=== PATIENT | female | born 1935 | race Caucasian/White ===

== ENCOUNTER 2019-12-06 21:28 | Inpatient (IN) | payer MEDICARE, SELFPAY ==
--- NOTE | ~2019-12-06 | XR_ITS ---
XR chest 1V portable 12/06/2019 22:40 Indication: Shortness of breath and cough. Left-sided chest pain. Procedure: AP portable chest Comparison: Comparison to multiple prior studies sequentially, with oldest reviewed study dated 04/12. Findings: Status post median sternotomy for CABG. Cardiomegaly. Left basilar infiltrates. Small left pleural effusion. No pneumothorax. Impression: 1: Left basilar infiltrates may represent atelectasis and/or pneumonia. 2: Small left pleural effusion. Reviewed, dictated and finalized at location [facility]. Impression: 1: Left basilar infiltrates may represent atelectasis and/or pneumonia. 2: Small left pleural effusion.
--- NOTE | ~2019-12-06 | CT_ITS ---
EXAMINATION: CT chest wo con DATE: 12/07/2019 00:16 INDICATION: Shortness of breath, cough, chest pain TECHNIQUE: Computed tomography (CT) of the chest was performed without intravenous contrast. Automate d exposure control and iterative reconstruction technique were employed. Exam dose: 170.90 mGy-cm to steven exam DLP. COMPARISON: 12/06/2019 portable AP chest at 2236 hours FINDINGS: There is an abnormal mass at the left mediastinum lateral to the aortic arch measuring 3.2 x 3 x 2.5 cm with central hypodensity suggesting necrosis. Additional prominent paratracheal and prec arinal lymph nodes are noted, the largest precarinal lymph node measuring 12 mm. Metastatic mediastin al lymphadenopathy is suspected. There is new irregular approximately 11 x 15 mm soft tissue mass density in the anterior basilar righ t lower lobe abutting the greater fissure, suspicious for carcinoma of the lung. There is an approximately 8 mm peripheral nodular density in the anterior segment of the left upper l obe with adjacent discoid atelectasis or more likely scarring. This may represent of focal area of ro unded atelectasis; neoplasm or metastasis is not excluded. There is elevation left leaf of the diaphragm and atelectasis at the left lung base. There is discoid atelectasis or scarring in the left lower lobe. Calcified pulmonary granuloma, superior segment of right lower lobe. Mild emphysematous changes. Cardiomegaly. There is extensive coronary artery calcification. No pericardial or pleural effusion. There is aortic and great vessel calcification. Normal morphology of the adrenal glands. Diverticulosis of the splenic flexure of the colon. Status post sternotomy. No suspicious osteolytic or osteoblastic lesions are noted. IMPRESSION: Prevascular mediastinal mass, mediastinal lymphadenopathy 11 x 15 mm soft tissue mass in the anterior basilar right lower lobe, suspicious for carcinoma: 8 mm nonspecific nodular density in the anterior segment left upper lobe, differential diagnosis incl uding a rounded atelectasis versus less likely primary or metastatic neoplasm Consider PET/CT imaging for further evaluation. Mild emphysema Mild elevation of the left leaf of the diaphragm and left basilar atelectasis Cardiomegaly; aortic and coronary atherosclerosis Reviewed, dictated and finalized at [facility]. Reviewed, dictated and finalized at location A. IMPRESSION: Prevascular mediastinal mass, mediastinal lymphadenopathy 11 x 15 mm soft tissue mass in the anterior basilar right lower lobe, suspiciou s for carcinoma: 8 mm nonspecific nodular density in the anterior segment left upper lobe, diffe rential diagnosis including a rounded atelectasis versus less likely primary or metastatic neoplasm Consider PET/CT imaging for further evaluation. Mild emphysema Mild elevation of the left leaf of the diaphragm and left basilar atelectasis Cardiomegaly; aortic and coronary atherosclerosis
--- NOTE | ~2019-12-06 | CT_ITS ---
EXAMINATION: CT brain wo con DATE: 12/07/2019 01:37 INDICATION: Confusion TECHNIQUE: Computed tomography (CT) of the head was performed without intravenous contrast. The mA wa s adjusted according to patient size. Iterative reconstruction technique was employed. Exam dose: 52 9.67 mGy-cm total exam DLP. COMPARISON: 05/09/2016 CT brain FINDINGS: No intracranial mass lesion or hemorrhage, midline shift or mass effect. No recent cerebrov ascular accident is evident. No midline shift or mass effects. There is moderate cerebellar and cerebral atrophy. Intracranial cerebral atherosclerosis. There are c hronic small vessel ischemic changes of the cerebral white matter. There is patchy opacification of ethmoid air cells bilaterally. The mastoid air cells are normally de veloped and aerated. No fracture or bone destruction of the cranial vault. IMPRESSION: Cerebral atherosclerosis and chronic small vessel ischemic changes of cerebral white mat ter Moderate cerebellar and cerebral atrophy Reviewed, dictated and finalized at [facility]. Reviewed, dictated and finalized at location A. IMPRESSION: Cerebral atherosclerosis and chronic small vessel ischemic changes of cerebral white matter Moderate cerebellar and cerebral atrophy
[2019-12-06 21:31] VITALS: BP 128/63; PULSE 118; RESP 26; TEMP 36.3; O2SAT 97
[2019-12-06 21:44] VITALS: BP 148/67; PULSE 115; RESP 26; O2SAT 97
[2019-12-06 21:45] VITALS: O2SAT 97
--- NOTE | 2019-12-06 21:46 | ECG_ITS ---
Measurements Intervals [place] Rate: 115 P: 40 NM: 194 QRS: -41 QRSD: 105 T: 81 QT: 341 QTc: 472 Interpretive Statements SINUS OR ECTOPIC ATRIAL TACHYCARDIA LEFT AXIS DEVIATION DELAYED PRECORDIAL R/S TRANSITION NONSPECIFIC ST & T-WAVE ABNORMALITY- HIGH LATERAL LEADS ABNORMAL ECG Electronically Signed On 12-07-2019 7:02:05 CDT by Robert David D.O.
--- NOTE | 2019-12-06 21:53 | ED.SOB ---
HPI - SOB/Dyspnea General Chief Complaint: Shortness of Breath/Dyspnea Stated Complaint: sob Time Seen by Provider: 12/06/19 21:43 Source: patient and family Mode of arrival: ambulatory Limitations: no limitations History of Present Illness HPI Narrative: This patient is a 84 year old female with history heart disease, former smoker who presents for evaluation of low oxygen saturation and shortness of breath. Patient's family reports patient was complaining of shortness of breath. They have checking her oxygen at home and tonight it went down to 91% on room so they came to ER. Patient reports chronic cough since 2016 and she reports shortness of breath since 2016. Tonight her breathing worsened and she had mild chest pain and weakness. Her daughter also reports patient has wheezing all the time. She denies use of inhaler or diagnosis of COPD or emphysema. PAtient states this is not COVID. She denies sore throat, runny nose, loss of taste or smell, abdominal pain, nausea, vomiting or fever. Related Data Home Medications Medication Instructions Recorded Confirmed metolazone 2.5 mg tablet 2.5 mg PO DAILY PRN 09/20/19 12/07/19 lisinopril 7.5 mg PO DAILY 12/06/19 12/07/19 atorvastatin 40 mg PO DAILY 12/07/19 12/07/19 clopidogrel 75 mg PO DAILY 12/07/19 12/07/19 furosemide 40 mg PO DAILY 12/07/19 12/07/19 Allergies Allergy/AdvReac Type Severity Reaction Status Date / Time No Known Allergies Allergy Verified 12/06/19 21:46 Review of Systems Review of Systems: All systems reviewed & are unremarkable except as noted in HPI and below Constitutional: Constitutional: Denies chills, Denies fever(s) and Reports weakness Cardiovascular: Cardiovascular: Reports chest pain Respiratory: Respiratory: Reports cough and Reports dyspnea Gastrointestinal: Gastrointestinal: Denies abdominal pain, Denies nausea and Denies vomiting [facility] Past Medical History Medical History (Updated 12/07/19 @ 11:08 by Bladimir Callaway MD) Anemia Anxiety Arthritis Callus of foot Cataracts, bilateral CHF (congestive heart failure) DVT (deep venous thrombosis) GI bleed Heart attack History of blood transfusion History of radiation therapy HTN (hypertension) Hyperlipidemia IBS (irritable bowel syndrome) Pneumonia Post-menopausal PVD (peripheral vascular disease) TIA (transient ischemic attack) Surgical History Surgical History (Updated 11/15/19 @ 13:40 by Asad Plunkett MD) History of appendectomy History of hip replacement Right - 2010 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 Smoking packs per day: 0.5 Smoking cigarettes per day: 10.0 Years smoked: 50 Smoking pack-years: 25.00 Smoking status: Former smoker Tobacco type: cigarettes Second hand tobacco smoke exposure: Yes Alcohol intake: former Substance use: never Gender identity (if verbalized by the patient): Female Sexual Orientation (if Verbalized by the Patient): Straight or Heterosexual Spiritual care concerns: No Exam Const: General: alert Orientation/consciousness: patient oriented x3 Eyes: Pupils: Equal, round and reactive pupils present EOM: EOMs intact bilaterally Chest: Chest palpation & inspection: normal inspection of the chest Resp: Effort & Inspection: normal respiratory effort, no retractions and no use of accessory muscles Auscultation: rhonchi right upper and right lower and wheezes Cardio: Rate: tachycardic Rhythm: regular rhythm Heart sounds: no murmurs GI: GI Palp: Yes Soft to palpation, No Tenderness to palpation present (GI), No Guarding due to palpation present (GI) and No Rigid due to palpation Back/Spine/Pelvis: Back: no CVA tenderness Skin: General skin exam: normal color Rashes: no rashes Neuro: General: patient oriented x3 and moves all extremities Cours
[2019-12-06 22:19] LABS: Alveolar/Arterial O2 Gradient 31.9 mmHg; Base Excess ABG -6.4 mEq/l (+/-2.0); Carboxyhemoglobin 0.3 % THb (0-2.0); Fractional Inspired Oxygen 21 %; HCO3 ABG 17.3 mEq/l (22.0-26.0); Methemoglobin ABG 0.2 %THb (0-1.5); Oxygen Content ABG 16.4 %vol (16.0-22.0); Oxygen Saturation ABG 96.2 % (95.0-100.0); Oxyhemoglobin 95.3 % THb (90.0-100.0); PCO2 ABG 29.3 mmHg (35.0-45.0); PO2 ABG 82.7 mmHg (80.0-100.0); PO2 FiO2 Ratio Arterial Blood 3.94 %; Reduced Hemoglobin 4.2 %THb (0-5.0); Total Hemoglobin 12.2 g/dL (12.0-18.0)
[2019-12-06 22:20] LABS: Device ROOM AIR; Modified Allen's Test Pass; Site Drawn RIGHT RADIAL
[2019-12-06 22:24] LABS: Basophils Absolute Auto 0.1 K/mm3 (0.0-0.1); Basophils Percent Auto 0.4 % (0.2-1.2); Eosinophils Absolute Auto 0.2 K/mm3 (0-0.3); Eosinophils Percent Auto 1.8 % (0-4.4); Hematocrit 40.4 % (37.0-47.0); Hemoglobin 12.9 g/dL (12.0-15.0); Immature Granulocyte Absolute 0.04 K/mm3 (0.00-0.031); Immature Granulocyte Percent A 0.3 % (0-0.5); Lymphocytes Absolute Auto 1.63 K/mm3 (0.9-3.2); Lymphocytes Percent Auto 14.1 % (18.3-44.2); Mean Corpuscular HGB Conc 31.9 g/dl (32-36); Mean Corpuscular Hemoglobin 28.8 pg (26-34); Mean Corpuscular Volume 90.2 fl (80-100); Mean Platelet Volume 10.7 fl (7.4-10.4); Monocytes Absolute Auto 0.8 K/mm3 (0.1-0.6); Monocytes Percent Auto 6.6 % (2.6-8.5); Neutrophils Absolute Auto 8.9 K/mm3 (1.3-6.7); Neutrophils Percent Auto 76.8 % (45.5-73.1); Platelet Count Result 402 k/mm3 (150-375); Red Blood Count 4.48 M/mm3 (4.2-5.4); Red Cell Distribution Width 13.4 % (11.5-14.5); White Blood Count 11.6 K/mm3 (4.5-10.0)
[2019-12-06 22:34] LABS: INR 1.2; Prothrombin Time 14.4 Seconds (11.1-14.7)
[2019-12-06 22:35] LABS: Partial Thromboplastin Time 31.7 SECONDS (22.3-36.8)
[2019-12-06 22:36] LABS: Alanine Aminotransferase 24 U/L (4-35); Albumin Level 4.4 g/dL (3.5-5.1); Alkaline Phosphatase 126 U/L (38-126); Anion Gap 16.9 mmol/L (7-16); Aspartate Amino Transferase 24 U/L (14-36); Bilirubin,Total 0.5 mg/dL (0.2-1.3); Blood Urea Nitrogen 36 mg/dL (7-17); Calcium 9.3 mg/dL (8.4-10.2); Carbon Dioxide 18 mmol/L (22-30); Chloride 108 mmol/L (98-107); Estimated CRCL calculation 22 ml/min; Estimated Glomerular Filt Rate 31; Glucose 107 mg/dL (65-105); Lactic Acid Reflex 0.6 mmol/L (0.7-2.1); Potassium 5.9 mmol/L (3.4-5.0); Sodium 137 mmol/L (137-145)
[2019-12-06 22:47] LABS: NT Pro B Type Natriuretic Pept 2520 PG/ML (5-100); Troponin I < 0.012 ng/mL (0.000-0.034)
[2019-12-07] VITALS (16 sets, daily range): BP systolic 105–137; BP diastolic 52–78; PULSE 80–121; RESP 13–24; TEMP 35.5–36.8; O2SAT 91–100; BMI 30.8
[2019-12-07 00:17] LABS: Add Urine Microscopic? YES; Appearance Urine Clear (Clear); Bilirubin Urine Negative (Negative); Blood Urine Negative (Negative); Color Urine Yellow (Yellow); Glucose Urine UA Negative (Negative); Hyaline Casts Urine 15-19 /lpf; Ketones Urine Negative (Negative); Leukocyte Esterase Ur 1+ LEU/UL (Negative); Mucus Urine Rare /lpf; Nitrate Urine Negative (Negative); Protein Urine 1+ mg/dL (Negative); RBC Urine 0-2 /hpf (0-2); Specific Grav Ur 1.025 (1.001-1.035); Squamous Epithelial Cell Urine Many /hpf (Few); Urobilinogen Urine Negative mg/dL (<2.0)
[2019-12-07] MEDS: ALBUTEROL SULFATE (*SP) AEROSOL 1 PUFF 6 PUFF INHALATION (00:20)
[2019-12-07] MEDS: SODIUM BICARBONATE 8.4% 50 MEQ/50 ML VIAL IV PUSH (00:27)
[2019-12-07] MEDS: DEXTROSE 50% 25 GM/50 ML SYRINGE IV PUSH ×2 (00:29→02:03)
[2019-12-07] MEDS: INSULIN HUMAN REGULAR (*BKC) 100 UNITS/ML 10 UNITS IV PUSH (00:36)
[2019-12-07] MEDS: CALCIUM GLUC 1,000 MG/NS 50 ML 1,000 MG/50 ML BAG 100 MG IVPB (00:40)
--- NOTE | 2019-12-07 01:30 | PC.NURSE ---
Report given to ESTELA Mahoney
--- NOTE | 2019-12-07 01:56 | PC.NURSE ---
Pt c/o not feeling well, sweaty , cannot state how she is feeling other than sweaty. She is diaphoretic. Dr. Schroeder made aware. Pt BS 45. aware.
[2019-12-07 01:57] LABS: Glucose Point of Care 45 (65-105)
[2019-12-07] MEDS: SODIUM CHLORIDE 0.9% IV 1,000 ML 999 ML IV CONT (02:02)
[2019-12-07] MEDS: dilTIAZem HCl INJ 25 MG/5 ML VIAL 10 MG IV PUSH (02:03)
[2019-12-07] MEDS: SODIUM POLYSTYRENE SULFONONATE 15 GM/60 ML BTL 30 GM PO (03:20)
--- NOTE | 2019-12-07 03:22 | PC.NURSE ---
Called to give nurse to nurse report, nurse Womack states they are intubating and starting a centralline atthis time so someone will call back when they can.
--- NOTE | 2019-12-07 03:23 | PC.NURSE ---
...continue from last note. Nurse Bob states the room is not clean and that they are in the middle of intubating and starting a central line. ED MD and Charge nurse made aware.
--- NOTE | 2019-12-07 03:58 | PC.NURSE ---
Granddaughter Batool would like to be contacted if anyone needs to speak with family, due to all other members being busy this week...[phone].
--- NOTE | 2019-12-07 04:06 | PC.NURSE ---
Granddaughter states Pt took 1300mg of Tylenol with no relief at 2039 right before coming into ER due to left shoulder pain hat stared 2wks ago. Pt denies having any falls to may have caused pain.
[2019-12-07 05:50] LABS: Glucose Point of Care 128 (65-105)
--- NOTE | 2019-12-07 06:37 | PC.NURSE ---
Pt stated after going to the bathroom she no longer felt anymore pain. Granddaughter states she expressed same satisfaction to her too while she was in the restroom with Pt.
[2019-12-07] MEDS: SODIUM CHLORIDE 0.9% IV 1,000 ML 100 ML IV CONT (07:48)
[2019-12-07 09:03] LABS: Anion Gap 13.8 mmol/L (7-16); Blood Urea Nitrogen 32 mg/dL (7-17); Calcium 8.7 mg/dL (8.4-10.2); Carbon Dioxide 20 mmol/L (22-30); Chloride 108 mmol/L (98-107); Estimated CRCL calculation 23 ml/min; Estimated Glomerular Filt Rate 33; Glucose 165 mg/dL (65-105); Potassium 4.8 mmol/L (3.4-5.0); Sodium 137 mmol/L (137-145)
[2019-12-07] MEDS: ALBUTEROL SULFATE (*SP) AEROSOL 1 PUFF 2 PUFF INHALATION ×2 (09:29→20:31)
--- NOTE | 2019-12-07 10:50 | PM.IMHP ---
H&P: HPI History of Present Illness Chief complaint: acute on chronic renal failure, mediasial mass and Narrative: Date of visit 12/06 0800. Jessica Rojas is a 84 year old female with known coronary disease and peripheral vascular disease with renal failure stage 3 presented to the emergency room with weakness increased shortness breath and found to be in acute on chronic renal failure with hyperkalemia. Has been hydrated given antidote for hyperkalemia with bicarb, insulin, Kayexalate and admitted. She denies any chest pain. She said yesterday she had gotten very weak can almost fell. More shortness breath than usual and cough is chronic And sputume a little more perulent than usual. No fever no chills. no pedal edema. limited in her walking with her peripheral vascular disease and shortness of breath Review of Systems Review of Systems: Narrative: constitutional weight is steady appetite good Eye no double vision scotoma mouth no pharyngitis laryngitis pulmonary as per present illness and some wheezing CVA as stated no palpitations or chest pain GI occasional loose stool nothing persistent no dysuria no hematuria occasional incontinence muscle skeletal no protection joint discomfort integument no skin breakdown rashes neuropsych no seizures no syncope PMFSH Past Medical History Medical History (Updated 12/07/19 @ 11:08 by Bladimir Callaway MD) Anemia Anxiety Arthritis Callus of foot Cataracts, bilateral CHF (congestive heart failure) DVT (deep venous thrombosis) GI bleed Heart attack History of blood transfusion History of radiation therapy HTN (hypertension) Hyperlipidemia IBS (irritable bowel syndrome) Pneumonia Post-menopausal PVD (peripheral vascular disease) TIA (transient ischemic attack) Surgical History Surgical History (Updated 11/15/19 @ 13:40 by Asad Plunkett MD) History of appendectomy History of hip replacement Right - 2010 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 Smoking packs per day: 0.5 Smoking cigarettes per day: 10.0 Years smoked: 50 Smoking pack-years: 25.00 Smoking status: Former smoker Tobacco type: cigarettes Second hand tobacco smoke exposure: Yes Alcohol intake: former Substance use: never Gender identity (if verbalized by the patient): Female Sexual Orientation (if Verbalized by the Patient): Straight or Heterosexual Spiritual care concerns: No Meds Home Medications and Allergies Home Medications Medication Instructions Recorded Confirmed Type metolazone 2.5 mg tablet 2.5 mg PO DAILY PRN 09/20/19 12/07/19 History metoprolol succinate 25 mg 25 mg PO DAILY #90 tablet 11/15/19 12/07/19 Rx tablet,extended release 24 hr lisinopril 7.5 mg PO DAILY 12/06/19 12/07/19 History atorvastatin 40 mg PO DAILY 12/07/19 12/07/19 History clopidogrel 75 mg PO DAILY 12/07/19 12/07/19 History furosemide 40 mg PO DAILY 12/07/19 12/07/19 History Allergies Allergy/AdvReac Type Severity Reaction Status Date / Time No Known Allergies Allergy Verified 12/06/19 21:46 Vital Signs Vital Signs - 24 hr 12/06/19 21:31 12/06/19 21:44 12/06/19 21:45 Temperature 36.3 C L Pulse Rate 118 H 115 H Respiratory Rate 26 H 26 H Blood Pressure 128/63 148/67 H Pulse Oximetry 97 97 97 12/07/19 00:21 12/07/19 02:01 12/07/19 02:30 Temperature Pulse Rate 110 H 118 H 112 H Respiratory Rate 20 13 Blood Pressure 116/52 L 111/55 L Pulse Oximetry 91 93 12/07/19 03:00 12/07/19 04:00 12/07/19 06:10 Temperature 36.4 C Pulse Rate 116 H 117 H Respiratory Rate 17 24 H Blood Pressure 109/73 105/62 Pulse Oximetry 98 100 100 12/07/19 06:27 12/07/19 08:00 12/07/19 09:18 Temperature 36.4 C 35.5 C L Pulse Rate 116 H 114 H 121 H Respiratory Rate 21 H 14 Blood Pressure 110/67 Pulse Oximetry 1
[2019-12-07] MEDS: METOPROLOL SUCCINATE EXT REL 25 MG TABCR PO (11:46)
[2019-12-07] MEDS: ATORVASTATIN 40 MG TABLET PO (11:46)
[2019-12-07] MEDS: DOXYCYCLINE HYCLATE 100 MG TABLET PO ×2 (11:46→22:05)
[2019-12-07] MEDS: PANTOPRAZOLE 40 MG TABLET PO (11:46)
[2019-12-07] MEDS: CLOPIDOGREL BISULFATE 75 MG TABLET PO (11:46)
--- NOTE | 2019-12-07 12:13 | PC.NURSE ---
This patient, Jessica Rojas, was received from [ICU ] on 12/07/19 at 1213. Personal belongings list checked and signed. Patient/family oriented to unit policies and routines
--- NOTE | 2019-12-07 12:23 | PC.NURSE ---
PATIENT TRANSFERRED TO ROOM 330 PER WHEELCHAIR.
[2019-12-07] MEDS: ENOXAPARIN 30 MG/0.3 ML SYRINGE SUB-Q (22:05)
[2019-12-07] MEDS: SODIUM CHLORIDE 0.9% IV 1,000 ML 50 ML IV CONT (22:10)
[2019-12-08] VITALS (8 sets, daily range): BP systolic 115–136; BP diastolic 67–87; PULSE 86–124; RESP 16–22; TEMP 36.3–36.8; O2SAT 91–99
[2019-12-08 06:15] LABS: Basophils Percent Auto 0.3 % (0.2-1.2); Eosinophils Absolute Auto 0.2 K/mm3 (0-0.3); Eosinophils Percent Auto 2.1 % (0-4.4); Hematocrit 38.9 % (37.0-47.0); Hemoglobin 12.1 g/dL (12.0-15.0); Immature Granulocyte Absolute 0.04 K/mm3 (0.00-0.031); Immature Granulocyte Percent A 0.4 % (0-0.5); Lymphocytes Absolute Auto 1.18 K/mm3 (0.9-3.2); Lymphocytes Percent Auto 12.6 % (18.3-44.2); Mean Corpuscular HGB Conc 31.1 g/dl (32-36); Mean Corpuscular Hemoglobin 28.6 pg (26-34); Monocytes Absolute Auto 0.6 K/mm3 (0.1-0.6); Neutrophils Absolute Auto 7.4 K/mm3 (1.3-6.7); Neutrophils Percent Auto 78.6 % (45.5-73.1); Platelet Count Result 296 k/mm3 (150-375); Red Blood Count 4.23 M/mm3 (4.2-5.4); Red Cell Distribution Width 13.5 % (11.5-14.5); White Blood Count 9.4 K/mm3 (4.5-10.0)
[2019-12-08 06:49] LABS: Alanine Aminotransferase 19 U/L (4-35); Albumin Level 3.7 g/dL (3.5-5.1); Alkaline Phosphatase 120 U/L (38-126); Anion Gap 14.5 mmol/L (7-16); Aspartate Amino Transferase 22 U/L (14-36); Bilirubin,Total 0.4 mg/dL (0.2-1.3); Blood Urea Nitrogen 25 mg/dL (7-17); Calcium 8.5 mg/dL (8.4-10.2); Carbon Dioxide 18 mmol/L (22-30); Chloride 111 mmol/L (98-107); Estimated CRCL calculation 29 ml/min; Estimated Glomerular Filt Rate 43; Glucose 117 mg/dL (65-105); Potassium 4.5 mmol/L (3.4-5.0); Sodium 139 mmol/L (137-145)
[2019-12-08] MEDS: ALBUTEROL SULFATE (*SP) AEROSOL 1 PUFF 2 PUFF INHALATION ×4 (08:56→21:13)
[2019-12-08] MEDS: METOPROLOL SUCCINATE EXT REL 25 MG TABCR PO (09:32)
[2019-12-08] MEDS: ATORVASTATIN 40 MG TABLET PO (09:34)
[2019-12-08] MEDS: CLOPIDOGREL BISULFATE 75 MG TABLET PO (09:34)
[2019-12-08] MEDS: DOXYCYCLINE HYCLATE 100 MG TABLET PO ×2 (09:34→20:26)
[2019-12-08] MEDS: PANTOPRAZOLE 40 MG TABLET PO (09:34)
[2019-12-08] MEDS: FUROSEMIDE 40 MG TABLET PO (12:23)
--- NOTE | 2019-12-08 14:16 | PM.IMPN ---
Progress Note: A&P Assessment and Plan (1) Acute renal failure superimposed on chronic kidney disease: Code(s): N17.9 - Acute kidney failure, unspecified; N18.9 - Chronic kidney disease, unspecified Status: Acute Assessment and Plan: creatinine a year ago was 1.28. With hyperkalemia held her KEIKO-inhibitor, hydrated, and continue to follow. Today potassium 4.5 and creatinine down to 1.2 will restart lasix (2) Hyperkalemia: Code(s): E87.5 - Hyperkalemia Status: Acute Assessment and Plan: as above held KEIKO-inhibitor and hydrate and potassium 4.5 today (3) Lung nodule: Code(s): R91.1 - Solitary pulmonary nodule Status: Acute Assessment and Plan: found on CT scan about 1.5 x 1 cm nodule. Will need follow-up and possibly percutaneous biopsy in the future or at minimum a repeat CT scan within 1-2 months (4) CAD in [place] artery: Code(s): I25.10 - Atherosclerotic heart disease of [place] coronary artery without angina pectoris Status: Acute Assessment and Plan: stable continue beta-siddharth Plavix and statin (5) Diastolic dysfunction: Code(s): I51.89 - Other ill-defined heart diseases Status: Acute Assessment and Plan: been sometime since she has had an echo reassess ventricular function, stop IV fluids and restart lasix with bnp 2500 (6) PAD (peripheral artery disease): Code(s): I73.9 - Peripheral vascular disease, unspecified Status: Acute Assessment and Plan: stable continue Plavix statin (7) DVT prophylaxis: Code(s): Z29.9 - Encounter for prophylactic measures, unspecified Status: Acute Assessment and Plan: Lovenox (8) Bronchitis: Code(s): J40 - Bronchitis, not specified as acute or chronic Status: Acute Assessment and Plan: with productive cough added doxycycline also Subjective Date/time seen: 12/08/19 14:16 Interval history: Date of visit 12/07. 84-year-old white female known coronary disease peripheral vascular disease presented to the emergency room with increased shortness breath and acute renal insufficiency with potassium elevated. With treatment for the hyperkalemia and hydration potassium fell and renal function returned to her baseline. She still has some dyspnea on exertion. Echocardiogram is pending. has chronic cough and she thought it was a little more purulent than usual. Exam Narrative: Exam Narrative: blood pressure 114/66 pulse is 86 saturating 98% on room air afebrile pupil equal reactive light sclera anicteric mouth normal lungs prolonged expiratory phase but no wheezing today CV tachy no murmurs or gallops abdomen soft nontender no masses extremities no edema dorsalis pedis posterior tibial not palpable but feet are warm neuro alert pleasant cooperative no focal deficits integument no skin breakdown rashes psych pleasant cooperative affect appropriate Objective Data Vital Signs Vital Signs: Vital Signs - 24 hr 12/07/19 14:20 12/07/19 16:00 12/07/19 20:34 Temperature 36.8 C Pulse Rate 87 80 Pulse Rate [With Activity During Therapy Session] 80 Respiratory Rate 18 18 Blood Pressure 137/68 Pulse Oximetry 97 94 12/07/19 22:00 12/08/19 02:00 12/08/19 06:00 Temperature 36.4 C 36.3 C L 36.5 C Pulse Rate 120 H 120 H 120 H Pulse Rate [With Activity During Therapy Session] Respiratory Rate 18 18 20 Blood Pressure 125/72 136/87 115/67 Pulse Oximetry 100 99 91 12/08/19 08:57 12/08/19 09:32 Temperature Pulse Rate 86 Pulse Rate [With Activity During Therapy Session] Respiratory Rate Blood Pressure Pulse Oximetry 92 Intake/Output Intake/Output: Intake & Output 12/05/19 12/06/19 12/07/19 12/08/19 23:59 23:59 23:59 23:59 Intake Total 3130 150 Balance 3130 150 Meds/Results Medications: Active Medications Generic Name Dose Route Start Last Admin Trade Name Maureen PRN Reas
[2019-12-08 14:41] LABS: SARS-CoV-2 RNA PCR Negative
--- NOTE | 2019-12-08 16:21 | PC.NURSE ---
Notified Dr. Callaway that patient COVID was negative.
[2019-12-08] MEDS: ENOXAPARIN 40 MG/0.4 ML SYRINGE SUB-Q (20:26)
[2019-12-09] VITALS (16 sets, daily range): BP systolic 113–131; BP diastolic 64–80; PULSE 118–125; RESP 18–20; TEMP 36.4–37.1; O2SAT 92–98
--- NOTE | 2019-12-09 | ECHO_ITS ---
Patient Info Name: Jessica Rojas Age: 84 years : 1935 Gender: Female Ht: 61 in Wt: 163 lbs BSA: 1.81 m2 HR: 120 bpm BP: 131 / 75 mmHg Heart Rhythm: Atrial Flutter Technical Quality: Good Exam Date: 12/09/2019 11:24 AM Exam Location: [facility] Pulmonary Exam Room: 304 Patient Status: Inpatient Admit Date: 12/07/2019 Staff Ordering Physician: Bladimir Callaway MD [employer] Off Bearer: Emily Gardner RDCS Attending Provider: Rachael Gonzalez DO Referring Physician: Nilton FRANKLIN; Exam Type: CA echo doppler color flow Study Info Indications - chf Complete two-dimensional, color flow and Doppler transthoracic echocardiogram is performed. Summary 1. Left ventricular systolic function is moderately reduced, estimated at 40-45%. 2. There is mildly increased left ventricular wall thickness. 3. Right atrial chamber dimension is moderately enlarged. 4. Left atrial chamber dimension is mildly enlarged. 5. There is moderate mitral valve regurgitation. 6. There is mild tricuspid valve regurgitation. 7. Mild pulmonary hypertension, estimated pulmonary arterial systolic pressure is 40 mmHg. Left Ventricle Left ventricular systolic function is moderately reduced, estimated at 40-45%. There is mildly increased left ventricular wall thickness. The left ventricular diastolic function is indeterminate. Global longitudinal strain is moderately elevated at -8 %. Right Ventricle Right ventricular chamber dimension is normal. Right ventricular systolic function is normal. Left Atria Left atrial chamber dimension is mildly enlarged. Right Atria Right atrial chamber dimension is moderately enlarged. Aortic Valve The aortic valve is trileaflet. There is mild aortic valve sclerosis. There is no aortic valve stenosis. There is no aortic valve regurgitation. Pulmonic Valve The pulmonic valve is not well visualized. Mitral Valve The mitral valve has thickened leaflets. There is moderate mitral valve regurgitation. The mitral valve annulus is mildly calcified. Tricuspid Valve The tricuspid valve leaflets are normal. There is mild tricuspid valve regurgitation. Mild pulmonary hypertension, estimated pulmonary arterial systolic pressure is 40 mmHg. Pericardium/Pleural The pericardium appears normal. There is no pericardial effusion. Inferior Vena Cava Normal inferior vena cava with >50% collapse upon inspiration consistent with normal right atrial pressure, 10 mmHg. Aorta The aortic root size at the sinus of Valsalva is normal. There is mild aortic atherosclerosis. Left Ventricular Outflow Tract Name Value Normal LVOT 2D LVOT Diameter 2.0 cm LVOT Doppler LVOT Peak Gradient 4 mmHg LVOT Mean Gradient 2 mmHg LVOT VTI 17 cm LVOT VTI/AV VTI Ratio 0.9 LVOT Stroke Volume 52 ml LVOT CO 13.0 l/min LVOT CI 7.1 l/min/m2 Pulmonic Valve
[2019-12-09 06:42] LABS: Anion Gap 12.1 mmol/L (7-16); Blood Urea Nitrogen 27 mg/dL (7-17); Calcium 8.7 mg/dL (8.4-10.2); Carbon Dioxide 21 mmol/L (22-30); Chloride 108 mmol/L (98-107); Estimated CRCL calculation 25 ml/min; Estimated Glomerular Filt Rate 36; Glucose 113 mg/dL (65-105); Potassium 4.1 mmol/L (3.4-5.0); Sodium 137 mmol/L (137-145)
[2019-12-09] MEDS: ALBUTEROL SULFATE (*SP) AEROSOL 1 PUFF 2 PUFF INHALATION ×4 (08:55→21:32)
[2019-12-09] MEDS: FUROSEMIDE 40 MG TABLET PO (08:59)
[2019-12-09] MEDS: CLOPIDOGREL BISULFATE 75 MG TABLET PO (08:59)
[2019-12-09] MEDS: ATORVASTATIN 40 MG TABLET PO (08:59)
[2019-12-09] MEDS: PANTOPRAZOLE 40 MG TABLET PO (08:59)
[2019-12-09] MEDS: METOPROLOL SUCCINATE EXT REL 25 MG TABCR PO (08:59)
[2019-12-09] MEDS: DOXYCYCLINE HYCLATE 100 MG TABLET PO ×2 (08:59→22:15)
--- NOTE | 2019-12-09 11:43 | ECG_ITS ---
Measurements Intervals [place] Rate: 123 P: ME: 0 QRS: -22 QRSD: 125 T: 70 QT: 357 QTc: 511 Interpretive Statements ATRIAL FLUTTER/TACHYCARDIA WITH RAPID VENTRICULAR RESPONSE RIGHT BUNDLE BRANCH BLOCK MINIMAL Q WAVES- HIGH LATERAL LEADS ABNORMAL ECG Electronically Signed On 12-09-2019 12:11:01 CDT by Robert David D.O.
[2019-12-09] MEDS: METOPROLOL TARTRATE INJ 5 MG/5 ML VIAL IV PUSH ×2 (13:06→13:54)
[2019-12-09 13:51] LABS: Basophils Percent Auto 0.3 % (0.2-1.2); Eosinophils Absolute Auto 0.2 K/mm3 (0-0.3); Eosinophils Percent Auto 2.5 % (0-4.4); Hematocrit 39.5 % (37.0-47.0); Hemoglobin 12.4 g/dL (12.0-15.0); Immature Granulocyte Absolute 0.04 K/mm3 (0.00-0.031); Immature Granulocyte Percent A 0.4 % (0-0.5); Lymphocytes Absolute Auto 1.33 K/mm3 (0.9-3.2); Lymphocytes Percent Auto 14.5 % (18.3-44.2); Mean Corpuscular HGB Conc 31.4 g/dl (32-36); Mean Corpuscular Hemoglobin 28.2 pg (26-34); Mean Corpuscular Volume 89.8 fl (80-100); Mean Platelet Volume 10.3 fl (7.4-10.4); Monocytes Absolute Auto 0.6 K/mm3 (0.1-0.6); Monocytes Percent Auto 6.8 % (2.6-8.5); Neutrophils Absolute Auto 6.9 K/mm3 (1.3-6.7); Neutrophils Percent Auto 75.5 % (45.5-73.1); Platelet Count Result 351 k/mm3 (150-375); Red Cell Distribution Width 13.5 % (11.5-14.5); White Blood Count 9.2 K/mm3 (4.5-10.0)
[2019-12-09 14:01] LABS: INR 1.1; Prothrombin Time 13.9 Seconds (11.1-14.7)
[2019-12-09 14:02] LABS: Partial Thromboplastin Time 30.4 SECONDS (22.3-36.8)
[2019-12-09] MEDS: HEPARIN SOD/D5W 100 UNITS/ML 25,000 UNITS/250 ML BAG 10 UNITS IV CONT (14:06)
--- NOTE | 2019-12-09 14:06 | PCPTNOTE ---
Patient attempted to see patient 2x today. Patient having testing done bedside on first attempt and patient being transferred to IMU due to increased HR on second attempt. P.T. will await orders to hold or continue with treatment due to transfer to IMU from medical floor.
[2019-12-09] MEDS: HEPARIN SODIUM 5,000 UNITS/ML VIAL 4500 UNITS IV PUSH (14:07)
--- NOTE | 2019-12-09 14:14 | PCOTNOTE ---
OT treatment not completed this date due to medical status and patient transferring to IMU. Will check with nursing/physician prior to attempting therapy. Will continue skilled therapy when medically appropriate.
--- NOTE | 2019-12-09 14:27 | PM.IMPN ---
Progress Note: A&P Assessment and Plan (1) Acute renal failure superimposed on chronic kidney disease: Code(s): N17.9 - Acute kidney failure, unspecified; N18.9 - Chronic kidney disease, unspecified Status: Acute Assessment and Plan: creatinine a year ago was 1.28. With hyperkalemia held her KEIKO-inhibitor, hydrated, and continue to follow. Today potassium 4.1 and creatinine 1.1 restarted lasix 12/07 (2) Hyperkalemia: Code(s): E87.5 - Hyperkalemia Status: Acute Assessment and Plan: as above held KEIKO-inhibitor and hydrate and potassium 4.1 today (3) Lung nodule: Code(s): R91.1 - Solitary pulmonary nodule Status: Acute Assessment and Plan: found on CT scan about 1.5 x 1 cm nodule. Will need follow-up and possibly percutaneous biopsy in the future or at minimum a repeat CT scan within 1-2 months (4) CAD in [place] artery: Code(s): I25.10 - Atherosclerotic heart disease of [place] coronary artery without angina pectoris Status: Acute Assessment and Plan: stable continue beta-siddharth Plavix and statin (5) Diastolic dysfunction: Code(s): I51.89 - Other ill-defined heart diseases Status: Acute Assessment and Plan: been sometime since she has had an echo reassess ventricular function, stopped IV fluids and restarted lasix with bnp 2500 (6) PAD (peripheral artery disease): Code(s): I73.9 - Peripheral vascular disease, unspecified Status: Acute Assessment and Plan: stable continue Plavix statin (7) DVT prophylaxis: Code(s): Z29.9 - Encounter for prophylactic measures, unspecified Status: Acute Assessment and Plan: now full dose heparin (8) Bronchitis: Code(s): J40 - Bronchitis, not specified as acute or chronic Status: Acute Assessment and Plan: with productive cough added doxycycline also (9) Atrial flutter: Code(s): I48.92 - Unspecified atrial flutter Status: Acute Assessment and Plan: tachycardia today and from records looks like started sometimes yesterday afternoon. EKG looks like atrial flutter with 2-1 block with no definite ischemia and patient relatively asymptomatic. Will start anticoagulation with heparin with her renal insufficiency and amiodarone to see if she will convert with cardiology input. Check thyroid profile also Subjective Date/time seen: 12/09/19 14:27 Interval history: Date of visit 12/08. 84-year-old white female known coronary disease peripheral vascular disease presented to the emergency room with increased shortness breath and acute renal insufficiency with potassium elevated. With treatment for the hyperkalemia and hydration potassium fell and renal function returned to her baseline. She is less sob and cough is less.. Echocardiogram is pending but done today. has chronic cough and she thought it was a little more purulent than usual so doxy was started. Exam Narrative: Exam Narrative: blood pressure 114/66 pulse is 124 saturating 98% on room air afebrile pupil equal reactive light sclera anicteric mouth normal lungs clear today CV tachy no murmurs or gallops abdomen soft nontender no masses extremities no edema dorsalis pedis posterior tibial not palpable but feet are warm neuro alert pleasant cooperative no focal deficits integument no skin breakdown rashes psych pleasant cooperative affect appropriate Objective Data Vital Signs Vital Signs: Vital Signs - 24 hr 12/08/19 18:00 12/08/19 20:00 12/08/19 22:00 Temperature 36.8 C 36.4 C L Pulse Rate 118 H 118 H 124 H Respiratory Rate 20 20 16 Blood Pressure 122/72 116/73 Pulse Oximetry 95 95 98 12/09/19 02:00 12/09/19 06:00 12/09/19 08:57 Temperature 36.4 C L 36.4 C Pulse Rate 120 H 121 H 125 H Respiratory Rate 18 18 18 Blood Pressure 117/80 131/75 113/72 Pulse Oximetry 92 95 96 12/09/19 08:59 12/09/19 10:20 12/09/19 13:05
--- NOTE | 2019-12-09 15:30 | PC.NURSE ---
Report given to ESTELA Beck @[id number]. Patient transported via bed to room 203.
[2019-12-09] MEDS: AMIODARONE 150 MG/D5W 100 ML 150 MG/100 ML BAG 600 MG IV CONT (15:31)
--- NOTE | 2019-12-09 16:05 | PC.NURSE ---
Recieved patient from room 304, report from Valerio, Patient stable.
--- NOTE | 2019-12-09 16:28 | PM.CNCAR ---
Assessment and Plan Assessment and plan (1) Atrial flutter with rapid ventricular response: Code(s): I48.92 - Unspecified atrial flutter Status: Acute Assessment and Plan: Relatively asymptomatic, hemodynamically stable. By history she has been experiencing this for least 2 weeks intermittently and possibly longer by her account. As such, will discontinue amiodarone given higher likelihood of left atrial appendage thrombus and stroke risk with chemical cardioversion. JENNYFER guidance prior to cardioversion be safest option if atrial flutter persists. She has not started on systemic anticoagulation Which should continue. Monitor for bleeding. Metoprolol 25 mg p.o. q.8 hour. Heart rate rapid but well tolerated thus far. We discussed the embolic stroke risk versus bleeding risk with management and anticoagulation. All questions answered to her satisfaction. will keep NPO after midnight in anticipation for possible JENNYFER guided cardioversion tomorrow. Will reassess in a.m.. 2D echocardiogram pending. Will review when available. (2) CAD in [place] artery: Code(s): I25.10 - Atherosclerotic heart disease of [place] coronary artery without angina pectoris Status: Acute Assessment and Plan: Stable, continue current medical therapy. No anginal symptoms. (3) CKD (chronic kidney disease) stage 3, GFR 30-59 ml/min: Code(s): N18.3 - Chronic kidney disease, stage 3 (moderate) Status: Acute Assessment and Plan: Stable. Continue monitor closely. Electrolytes under fair control. Hyperkalemia initially now resolved. (4) PAD (peripheral artery disease): Code(s): I73.9 - Peripheral vascular disease, unspecified Status: Acute Assessment and Plan: Stable significant claudication. Longstanding. Continue medical therapy. (5) Mediastinal mass: Code(s): J98.59 - Other diseases of mediastinum, not elsewhere classified Status: Acute Assessment and Plan: 1.5 x 1.0 cm nodule which requires further workup. Defer to primary service. History of Present Illness History of Present Illness Consult date/time: Date of service: 12/09/19 16:28 This is a cardiology consultation at the request of Dr. Callaway of the [facility] service for opinion regarding atrial flutter with rapid ventricular response. Requesting physician: Bladimir Callaway MD Consult reason: atrial fibrillation ( Atrial flutter with rapid ventricular response) Reason For Visit: acute on chronic renal failure, mediasial mass and Narrative: patient is a very pleasant 84-year-old female known to our service followed by Dr. Agarwal as an outpatient with extensive history including CAD status post CABG ALLEN to LAD, SVG to OM1, SVG to PDA October 2015 for left main stenosis, significant peripheral vascular disease status post peripheral intervention most recently April 2019, history of GI bleed on aspirin, clopidogrel, and cilostazol (tolerating Plavix), history of TIA April 2016, hypertension, dyslipidemia, COPD, history of systolic and diastolic heart failure who presented to the emergency department with progressive weakness, shortness of breath noted at that time to be in acute renal failure with hyperkalemia. This was treated with hydration, bicarb, insulin, and Kayexalate. She denies chest pain at any time. She denies shortness of breath this time since admission. She states she is feeling better denies recent falls or bleeding. She denies palpitations. She appears to have been in atrial flutter since admission although transiently may have been in sinus rhythm with heart rate in the 80s in the afternoon 12/07/2019. Initial EKG interpreted as sinus tachycardia or ectopic tachycardia subsequently atrial flutter. On my review both appear to be consistent with atrial flutter with rapid ventricular response. Patient denies prior documentation of arrhythmia but admits she has noted an moni
[2019-12-09] MEDS: METOPROLOL TARTRATE 25 MG TABLET PO ×2 (17:51→22:15)
[2019-12-09 20:53] LABS: Partial Thromboplastin Time 166.3 SECONDS (22.3-36.8)
[2019-12-10] VITALS (23 sets, daily range): BP systolic 80–117; BP diastolic 34–72; PULSE 55–118; RESP 16–22; TEMP 36.1–37.1; O2SAT 91–99
[2019-12-10 04:37] LABS: Basophils Percent Auto 0.4 % (0.2-1.2); Eosinophils Absolute Auto 0.3 K/mm3 (0-0.3); Hematocrit 37.3 % (37.0-47.0); Immature Granulocyte Absolute 0.04 K/mm3 (0.00-0.031); Immature Granulocyte Percent A 0.5 % (0-0.5); Lymphocytes Absolute Auto 2.01 K/mm3 (0.9-3.2); Lymphocytes Percent Auto 24.8 % (18.3-44.2); Mean Corpuscular HGB Conc 32.2 g/dl (32-36); Mean Corpuscular Hemoglobin 28.6 pg (26-34); Mean Corpuscular Volume 88.8 fl (80-100); Mean Platelet Volume 10.8 fl (7.4-10.4); Monocytes Absolute Auto 0.6 K/mm3 (0.1-0.6); Monocytes Percent Auto 7.5 % (2.6-8.5); Neutrophils Absolute Auto 5.1 K/mm3 (1.3-6.7); Neutrophils Percent Auto 62.8 % (45.5-73.1); Platelet Count Result 323 k/mm3 (150-375); Red Cell Distribution Width 13.5 % (11.5-14.5); White Blood Count 8.1 K/mm3 (4.5-10.0)
[2019-12-10 04:48] LABS: Partial Thromboplastin Time 123.9 SECONDS (22.3-36.8)
[2019-12-10 05:01] LABS: Anion Gap 14.9 mmol/L (7-16); Blood Urea Nitrogen 35 mg/dL (7-17); Calcium 8.9 mg/dL (8.4-10.2); Carbon Dioxide 22 mmol/L (22-30); Chloride 103 mmol/L (98-107); Estimated CRCL calculation 22 ml/min; Estimated Glomerular Filt Rate 31; Glucose 110 mg/dL (65-105); Magnesium 1.3 mg/dL (1.6-2.3); Potassium 3.9 mmol/L (3.4-5.0); Sodium 136 mmol/L (137-145)
[2019-12-10] MEDS: METOPROLOL TARTRATE 25 MG TABLET PO ×2 (06:28→21:55)
[2019-12-10] MEDS: DOXYCYCLINE HYCLATE 100 MG TABLET PO ×2 (08:15→21:55)
[2019-12-10] MEDS: ATORVASTATIN 40 MG TABLET PO (08:15)
[2019-12-10] MEDS: CLOPIDOGREL BISULFATE 75 MG TABLET PO (08:15)
[2019-12-10] MEDS: PANTOPRAZOLE 40 MG TABLET PO (08:15)
[2019-12-10] MEDS: MAGNESIUM SULF 2 GM/WATER 50ML 2 GM/50 ML BAG IVPB (08:15)
--- NOTE | 2019-12-10 08:42 | PM.PNCARD ---
Progress Note: A&P Additional Plan 84-year-old woman with coronary artery disease and chronic lung disease. She presents with modest hypoxemia and incidentally found to be in atrial flutter with 2-1 conduction. As detailed in my note above we will a plan to arrange for JENNYFER guided cardioversion attempt some time today depending on availability of the Anesthesiology Service. Following oriental orthodox of sinus rhythm I would anticipate needing to choose a systemic anticoagulant and discontinuing clopidogrel. In addition to this an antiarrhythmic agent, probably amiodarone will be started in hopes of maintaining sinus rhythm. obviously if we identify left atrial thrombus then no cardioversion attempt will be made today Addy Garcia MD [facility] Subjective Date/time seen: Date of service:12/10/19 08:42 Interval history: 84-year-old woman with a history of coronary artery disease and chronic COPD with previous tobacco abuse. Presents with hypoxemia and incidentally noted to be in atrial flutter with 2-1 conduction. The patient appears to be minimally if at all symptomatic with this arrhythmia. My partner who saw the patient yesterday indicated that JENNYFER/cardioversion would be a reasonable option. Long discussion with the patient as well as granddaughter on the telephone this morning. The reasonable options would be to proceed in this fashion with the alternative being to anticoagulate her for 4-6 weeks as an outpatient. The advantage of this would be to obviate the need for esophageal echo. The advantage of proceeding at this time would be to avoid the need for a few future cardioversion procedure. It is the patient's preference to try to restore sinus rhythm during this hospitalization. Because of her chronic lung disease we will schedule this procedure with anesthesia in attendance to manage sedation and protect her airway. Exam Const: General: comfortable and no acute distress HENMT: Mouth: Yes moist mucous membranes Eyes: Sclera: sclerae normal Pupils: Equal, round and reactive pupils present Neck: Neck: supple and no JVD Thyroid: thyroid normal Resp: Effort & Inspection: normal respiratory effort Auscultation: diminished lung sounds Cardio: Rate: tachycardic Rhythm: regular rhythm GI: Auscultation: normal bowel sounds Skin: General skin exam: normal color Neuro: Cognition (Neuro): normal cognition Extrem: General: normal to inspection Objective Data Vital Signs Vital Signs: Vital Signs - 24 hr 12/09/19 08:57 12/09/19 08:59 12/09/19 10:20 Temperature Pulse Rate 125 H 125 H Respiratory Rate 18 Blood Pressure 113/72 Pulse Oximetry 96 94 12/09/19 13:05 12/09/19 13:06 12/09/19 13:54 Temperature Pulse Rate 124 H 124 H 122 H Respiratory Rate 18 Blood Pressure 113/67 Pulse Oximetry 98 12/09/19 14:00 12/09/19 15:31 12/09/19 16:45 Temperature 36.7 C 37.1 C Pulse Rate 125 H 123 H 118 H Respiratory Rate 18 20 Blood Pressure 129/64 115/72 Pulse Oximetry 97 98 12/09/19 17:51 12/09/19 20:00 12/09/19 21:34 Temperature 37.0 C Pulse Rate 124 H 118 H Respiratory Rate 20 Blood Pressure 117/77 Pulse Oximetry 93 93 12/09/19 22:00 12/09/19 22:15 12/10/19 00:00 Temperature 36.9 C Pulse Rate 120 H 119 H 118 H Respiratory Rate 18 Blood Pressure 117/72 Pulse Oximetry 97 12/10/19 02:00 12/10/19 04:00 12/10/19 06:00 Temperature 37.1 C Pulse Rate 116 H 111 H 118 H Respiratory Rate 18 Blood Pressure 104/58 L Pulse Oximetry 95 12/10/19 06:28 12/10/19 08:00 Temperature 36.2 C L Pulse Rate 109 H 115 H Respiratory Rate 16 Blood Pressure 104/68 Pulse Oximetry 97 Intake/Output Intake/Output: Intake & Output 12/07/19 12/08/19 12/09/19 12/10/19 23:59 23:59 23:59 23:59 Intake Total 3130 2720 1710 134 Output Total 1600 450 725 Balance 3130 1120 1260 -591 Meds/Results Medications: Active Medications Generic Name Dose Route
[2019-12-10] MEDS: ALBUTEROL SULFATE (*SP) AEROSOL 1 PUFF 2 PUFF INHALATION ×4 (08:55→20:33)
[2019-12-10 11:24] LABS: Partial Thromboplastin Time 68.4 SECONDS (22.3-36.8)
[2019-12-10] MEDS: HEPARIN SODIUM 5,000 UNITS/ML VIAL 2500 UNITS IV PUSH (12:45)
--- NOTE | 2019-12-10 13:13 | WPDANESEPPF ---
Anes - Initial Pre Proc Eval Procedure: Operation Date: 12/10/19 13:30 Proposed Procedures p Trans Esophageal Echo - Addy Garcia MD s Electrical Cardioversion - Addy Garcia MD Date/Time: 12/10/19 13:13 Surgeon: Rachael Gonzalez DO Pre Op Diagnosis: acute on chronic renal failure, mediasial mass and Patient Data Age: 84 Gender: F Height: 1.55 m Weight: 74 kg Last Vital Signs Temp 36.3 C L 12/10/19 11:56 Pulse 117 H 12/10/19 11:56 Resp 20 12/10/19 11:56 BP 101/54 L 12/10/19 11:56 Pulse Ox 95 12/10/19 11:56 Allergies Allergy/AdvReac Type Severity Reaction Status Date / Time No Known Allergies Allergy Verified 12/06/19 21:46 Home Medications Medication Instructions Recorded Confirmed Type metolazone 2.5 mg tablet 2.5 mg PO DAILY PRN 09/20/19 12/07/19 History metoprolol succinate 25 mg 25 mg PO DAILY #90 tablet 11/15/19 12/07/19 Rx tablet,extended release 24 hr lisinopril 7.5 mg PO DAILY 12/06/19 12/07/19 History atorvastatin 40 mg PO DAILY 12/07/19 12/07/19 History clopidogrel 75 mg PO DAILY 12/07/19 12/07/19 History furosemide 40 mg PO DAILY 12/07/19 12/07/19 History Laboratory Tests 12/09/19 12/09/19 12/09/19 13:33 13:33 13:33 WBC 9.2 K/mm3 K/mm3 (4.5-10.0) RBC 4.40 M/mm3 M/mm3 (4.2-5.4) Hgb 12.4 g/dL g/dL (12.0-15.0) Hct 39.5 % % (37.0-47.0) MCV 89.8 fl fl (80-100) MCH 28.2 pg pg (26-34) MCHC 31.4 g/dl L g/dl (32-36) RDW 13.5 % % (11.5-14.5) Plt Count 351 k/mm3 k/mm3 (150-375) MPV 10.3 fl fl (7.4-10.4) Immature Gran % (Auto) 0.4 % % (0-0.5) Neut % (Auto) 75.5 % H % (45.5-73.1) Lymph % (Auto) 14.5 % L % (18.3-44.2) [place] % (Auto) 6.8 % % (2.6-8.5) Eos % (Auto) 2.5 % % (0-4.4) Baso % (Auto) 0.3 % % (0.2-1.2) Lymph # (Auto) 1.33 K/mm3 K/mm3 (0.9-3.2) [place] # (Auto) 0.6 K/mm3 K/mm3 (0.1-0.6) Eos # (Auto) 0.2 K/mm3 K/mm3 (0-0.3) Baso # (Auto) 0.0 K/mm3 K/mm3 (0.0-0.1) Abs Immat Gran (auto) 0.04 K/mm3 H K/mm3 (0.00-0.031) Absolute Neuts (auto) 6.9 K/mm3 H K/mm3 (1.3-6.7) Absolute Nucleated RBC 0.0 K/mm3 K/mm3 (0.0-0.012) Nucleated RBC % 0.0 % % (0.0-0.2) PT 13.9 Seconds Seconds (11.1-14.7) INR 1.1 APTT Cancelled 30.4 SECONDS SECONDS (22.3-36.8) Sodium Potassium Chloride Carbon Dioxide Anion Gap BUN Creatinine Estim Creat Clear Calc Estimated GFR Glucose Calcium Magnesium TSH (Reflex) 12/09/19 12/10/19 12/10/19 20:19 04:07 04:07 WBC RBC Hgb Hct MCV MCH MCHC RDW Plt Count MPV Immature Gran % (Auto) Neut % (Auto) Lymph % (Auto) [place] % (Auto) Eos % (Auto) Baso % (Auto) Lymph # (Auto) [place] # (Auto) Eos # (Auto) Baso # (Auto) Abs Immat Gran (auto) Absolute Neuts (auto) Absolute Nucleated RBC Nucleated RBC % PT INR APTT 166.3 SECONDS H* SECONDS (22.3-36.8) Sodium 136 mmol/L L mmol/L (137-145) Potassium 3.9 mmol/L mmol/L (3.4-5.0) Chloride 103 mmol/L mmol/L (98-107) Carbon Dioxide 22 mmol/L mmol/L (22-30) Anion Gap 14.9 mmol/L mmol/L (7-16) BUN 35 mg/dL H mg/dL (7-17) Creatinine 1.60 mg/dL H mg/dL (0.7-1.0) Estim Creat Clear Calc 22 ml/min ml/min Estimated GFR 3
--- NOTE | 2019-12-10 13:30 | ECHO_ITS ---
Patient Info Name: Jessica Rojas Age: 84 years : 1935 Gender: Female Ht: 61 in Wt: 163 lbs BSA: 1.81 m2 HR: 113 bpm Heart Rhythm: Atrial Flutter Exam Date: 12/10/2019 1:33 PM Exam Location: [facility] Pulmonary Patient Status: Inpatient Admit Date: 12/07/2019 Staff Ordering Physician: Sharon Brown APRN Director Of Quality Control: Markel Gore RDCS, RT Attending Provider: Rachael Gonzalez DO Referring Physician: Kevin SANTILLAN; Exam Type: CA echo transesophageal Study Info Indications I48.1 - Persistent atrial fibrillation Complete two-dimensional, color flow and Doppler transesophageal study is performed. Procedure Details JENNYFER done to exclude LA clot prior to DC Cardioversion. Summary 1. JENNYFER done to exclude LA clot prior to DC Cardioversion. Left Ventricle Left ventricular chamber dimension is mildly enlarged. Right Ventricle Right ventricular chamber dimension is normal. Left Atria Left atrial chamber dimension is moderately enlarged. There is no thrombus visualized in the left atrium. Right Atria Right atrial chamber dimension is normal. Atrial Appendage There is no thrombus visualized in the left atrial appendage. Aortic Valve The aortic valve is trileaflet. There is no aortic valve sclerosis. Pulmonic Valve The pulmonic valve is not well visualized. Mitral Valve The mitral valve has normal leaflets. There is moderate mitral valve regurgitation. Tricuspid Valve The tricuspid valve leaflets are not well visualized. Pericardium/Pleural The pericardium appears normal. Inferior Vena Cava Not well visualized inferior vena cava with Empty collapse upon inspiration consistent with Empty right atrial pressure, Empty. Aorta The aortic root size at the sinus of Valsalva is normal. Report Signatures
--- NOTE | 2019-12-10 14:04 | ECG_ITS ---
Measurements Intervals [place] Rate: 63 P: 57 [place]: 124 QRS: -26 QRSD: 106 T: -32 QT: 463 QTc: 474 Interpretive Statements SINUS RHYTHM INCOMPLETE RIGHT BUNDLE BRANCH BLOCK MINIMAL Q WAVES- HIGH LATERAL LEADS NONSPECIFIC T-WAVE ABNORMALITY- ANTEROLAT/INF LEADS BASELINE WANDER- I, III, AVR, AVL, AVF, V3 BORDERLINE ECG Electronically Signed On 12-10-2019 16:28:15 CDT by Robert David D.O.
--- NOTE | 2019-12-10 14:05 | P.PCNCC_ITS ---
Cardiac Cath Procedure Note Date of procedure:: 12/10/19 Performing physician:: Addy Garcia MD Indication:: Atrial Flutter Brief clinical history:: 84 yo WF with CAD and COPD . Found to be in persistent A Flutter that may be contributing to ROMERO Procedure Procedure performed:: JENNYFER/CV Sedation/Medication given:: Per anesthesia Estimated blood loss:: No blood loss Procedure note:: after sedation by anesthesia pt had JENNYFER probe placed for imaging of the LA . No clot seen in LA or appendage . Pt then DC Cardioverted to NSR with 200 J X1 shock to NSR 1 Findings:: As above Conclusion:: Successful JENNYFER/ CV of A Flutter to NSR using 200 J X 1 shock after JENNYFER demonstrated no LA clot Addy Garcia MD [facility]
--- NOTE | 2019-12-10 14:41 | PCPTNOTE ---
The patient treatment was not able to be completed on 12/10/19 due to patient out for medical testing. Will attempt to see patient for therapy tomorrow as deemed appropriate. Kay Zavala, PT, DPT
--- NOTE | 2019-12-10 14:42 | PCOTNOTE ---
Cardioversion completed 12/09. OT/PT to re-assess patient 12/10 and continue therapy services as appropriate.
--- NOTE | 2019-12-10 17:20 | PM.IMPN ---
Progress Note: A&P Assessment and Plan (1) Acute renal failure superimposed on chronic kidney disease: Code(s): N17.9 - Acute kidney failure, unspecified; N18.9 - Chronic kidney disease, unspecified Status: Acute Assessment and Plan: creatinine a year ago was 1.28. With hyperkalemia held her KEIKO-inhibitor, hydrated, and continue to follow. Today potassium 3.9 and creatinine 1.6 creatinine possibly back up with aflutter and decreased CO and renal perfusion. follow (2) Hyperkalemia: Code(s): E87.5 - Hyperkalemia Status: Acute Assessment and Plan: as above held KEIKO-inhibitor and hydrate and potassium 3.9 today (3) Lung nodule: Code(s): R91.1 - Solitary pulmonary nodule Status: Acute Assessment and Plan: found on CT scan about 1.5 x 1 cm nodule. Will need follow-up and possibly percutaneous biopsy in the future or at minimum a repeat CT scan within 1-2 months (4) CAD in [place] artery: Code(s): I25.10 - Atherosclerotic heart disease of [place] coronary artery without angina pectoris Status: Acute Assessment and Plan: stable continue beta-siddharth Plavix and statin (5) Diastolic dysfunction: Code(s): I51.89 - Other ill-defined heart diseases Status: Acute Assessment and Plan: been sometime since she has had an echo reassess ventricular function, stopped IV fluids and restarted lasix with bnp 2500 DD dysfunction with EF 40-45% (6) PAD (peripheral artery disease): Code(s): I73.9 - Peripheral vascular disease, unspecified Status: Acute Assessment and Plan: stable continue Plavix statin (7) DVT prophylaxis: Code(s): Z29.9 - Encounter for prophylactic measures, unspecified Status: Acute Assessment and Plan: now full dose heparin prior to cardioversion (8) Bronchitis: Code(s): J40 - Bronchitis, not specified as acute or chronic Status: Acute Assessment and Plan: with productive cough added doxycycline on admission (9) Atrial flutter: Code(s): I48.92 - Unspecified atrial flutter Status: Acute Assessment and Plan: tachycardia today and from records looks like started sometimes 12/07 afternoon. EKG atrial flutter with 2-1 block with no definite ischemia and patient relatively asymptomatic. anticoagulation with heparin with her renal insufficiency and JENNYFER cardioversion today. TSH normal Subjective Date/time seen: 12/10/19 17:20 Interval history: Date of visit 12/09. 84-year-old white female known coronary disease peripheral vascular disease presented to the emergency room with increased shortness breath and acute renal insufficiency with potassium elevated. With treatment for the hyperkalemia and hydration potassium fell and renal function returned to her baseline. She is less sob and cough is less.. Echocardiogram EF 40-45%. has chronic cough and she thought it was a little more purulent than usual so doxy was started. aflutter 12/08 and evaluated today for JENNYFER cardioversion. no sob though and notices no palpitaions Exam Narrative: Exam Narrative: blood pressure 104/68 pulse is 118 saturating 98% on room air afebrile pupil equal reactive light sclera anicteric mouth normal lungs clear today CV tachy no murmurs or gallops abdomen soft nontender no masses extremities no edema dorsalis pedis posterior tibial not palpable but feet are warm neuro alert pleasant cooperative no focal deficits integument no skin breakdown rashes psych pleasant cooperative affect appropriate Objective Data Vital Signs Vital Signs: Vital Signs - 24 hr 12/09/19 17:51 12/09/19 20:00 12/09/19 21:34 Temperature 37.0 C Pulse Rate 124 H 118 H Respiratory Rate 20 Blood Pressure 117/77 Pulse Oximetry 93 93 12/09/19 22:00 12/09/19 22:15 12/10/19 00:00 Temperature 36.9 C Pulse Rate 120 H 119 H 118 H Respiratory Rate 18 Blood Pressu
[2019-12-10] MEDS: AMIODARONE HCL 200 MG TABLET 400 MG PO (17:49)
[2019-12-10] MEDS: SODIUM CHLORIDE 0.9% IV 1,000 ML 100 ML IV CONT (17:49)
[2019-12-10] MEDS: RIVAROXABAN 15 MG TABLET PO (17:49)
[2019-12-11] VITALS (20 sets, daily range): BP systolic 94–126; BP diastolic 33–73; PULSE 51–79; RESP 15–16; TEMP 35.6–36.3; O2SAT 93–100
[2019-12-11] MEDS: SODIUM CHLORIDE 0.9% IV 1,000 ML 100 ML IV CONT (03:37)
[2019-12-11 05:01] LABS: Anion Gap 12.4 mmol/L (7-16); Blood Urea Nitrogen 34 mg/dL (7-17); Calcium 8.4 mg/dL (8.4-10.2); Carbon Dioxide 22 mmol/L (22-30); Chloride 106 mmol/L (98-107); Estimated CRCL calculation 23 ml/min; Estimated Glomerular Filt Rate 33; Glucose 102 mg/dL (65-105); Potassium 4.4 mmol/L (3.4-5.0); Sodium 136 mmol/L (137-145)
[2019-12-11] MEDS: METOPROLOL TARTRATE 25 MG TABLET PO (06:01)
[2019-12-11] MEDS: ALBUTEROL SULFATE (*SP) AEROSOL 1 PUFF 2 PUFF INHALATION ×4 (07:35→19:44)
[2019-12-11] MEDS: AMIODARONE HCL 200 MG TABLET 400 MG PO (09:01)
[2019-12-11] MEDS: PANTOPRAZOLE 40 MG TABLET PO (09:01)
[2019-12-11] MEDS: ATORVASTATIN 40 MG TABLET PO (09:01)
[2019-12-11] MEDS: FUROSEMIDE 40 MG TABLET PO (09:01)
[2019-12-11] MEDS: DOXYCYCLINE HYCLATE 100 MG TABLET PO ×2 (09:01→20:42)
--- NOTE | 2019-12-11 10:02 | PM.PNCARD ---
Progress Note: A&P Assessment and Plan (1) Atrial flutter with rapid ventricular response: Code(s): I48.92 - Unspecified atrial flutter Status: Acute Assessment and Plan: Relatively asymptomatic, hemodynamically stable. By history she has been experiencing this for least 2 weeks intermittently and possibly longer by her account. As such, will discontinue amiodarone given higher likelihood of left atrial appendage thrombus and stroke risk with chemical cardioversion. JENNYFER guidance prior to cardioversion be safest option if atrial flutter persists. She has not started on systemic anticoagulation Which should continue. Monitor for bleeding. will reduce her metoprolol to 12.5 mg p.o. b.i.d. continue amiodarone at current dose.Would keep at least through the afternoon to see heart rate response. (2) CAD in [place] artery: Code(s): I25.10 - Atherosclerotic heart disease of [place] coronary artery without angina pectoris Status: Acute Assessment and Plan: Stable, continue current medical therapy. No anginal symptoms. (3) CKD (chronic kidney disease) stage 3, GFR 30-59 ml/min: Code(s): N18.3 - Chronic kidney disease, stage 3 (moderate) Status: Acute Assessment and Plan: Stable. Continue monitor closely. Electrolytes under fair control. Hyperkalemia initially now resolved. (4) PAD (peripheral artery disease): Code(s): I73.9 - Peripheral vascular disease, unspecified Status: Acute Assessment and Plan: Stable significant claudication. Longstanding. Continue medical therapy. (5) Mediastinal mass: Code(s): J98.59 - Other diseases of mediastinum, not elsewhere classified Status: Acute Assessment and Plan: 1.5 x 1.0 cm nodule which requires further workup. Defer to primary service. Subjective Date/time seen: 12/11/19 10:02 Interval history: 84-year-old woman with a history of coronary artery disease and chronic COPD with previous tobacco abuse. Presents with hypoxemia and incidentally noted to be in atrial flutter with 2-1 conduction. The patient appears to be minimally if at all symptomatic with this arrhythmia. My partner who saw the patient yesterday indicated that JENNYFER/cardioversion would be a reasonable option. Long discussion with the patient as well as granddaughter on the telephone this morning. The reasonable options would be to proceed in this fashion with the alternative being to anticoagulate her for 4-6 weeks as an outpatient. The advantage of this would be to obviate the need for esophageal echo. The advantage of proceeding at this time would be to avoid the need for a few future cardioversion procedure. It is the patient's preference to try to restore sinus rhythm during this hospitalization. Because of her chronic lung disease we will schedule this procedure with anesthesia in attendance to manage sedation and protect her airway. Date of service 12/11/2019: She did undergo successful JENNYFER guided cardioversion yesterday. She has periodic episodes of bradycardia generally at night with heart rates in the 40s. Otherwise she feels great today and denies any chest pain or significant shortness of breath Review of Systems Review of Systems: All systems reviewed & are unremarkable except as noted in HPI and below Constitutional: Constitutional: Reports as per HPI, Reports no additional constitutional complaints, Reports fatigue and Reports weakness Eyes: Eyes: Reports as per HPI and Reports no additional eye complaints ENT: Reports system reviewed and no additional complaints, except as documented and Reports as per HPI Cardiovascular: Cardiovascular: Reports as per HPI, Reports no additional cardiovascular complaints, Denies chest pain, Denies diaphoresis, Reports leg edema, Denies palpitations, Denies dyspnea and Denies dyspnea on exertion Respiratory: Respiratory: Reports as per HPI, Reports no additional respiratory c
[2019-12-11] MEDS: ALBUTEROL SULFATE (*SP) INHALER 1 PUFF (11:32)
--- NOTE | 2019-12-11 15:41 | PM.IMPN ---
Progress Note: A&P Assessment and Plan (1) Acute renal failure superimposed on chronic kidney disease: Code(s): N17.9 - Acute kidney failure, unspecified; N18.9 - Chronic kidney disease, unspecified Status: Acute Assessment and Plan: creatinine a year ago was 1.28. With hyperkalemia held her KEIKO-inhibitor, hydrated, and continue to follow. Today potassium 4.4 and creatinine 1.5 creatinine possibly back up with aflutter and decreased CO and renal perfusion. follow (2) Hyperkalemia: Code(s): E87.5 - Hyperkalemia Status: Acute Assessment and Plan: as above held KEIKO-inhibitor and hydrate and potassium 4.4 today (3) Lung nodule: Code(s): R91.1 - Solitary pulmonary nodule Status: Acute Assessment and Plan: found on CT scan about 1.5 x 1 cm nodule. Will need follow-up and possibly percutaneous biopsy in the future or at minimum a repeat CT scan within 1-2 months (4) CAD in [place] artery: Code(s): I25.10 - Atherosclerotic heart disease of [place] coronary artery without angina pectoris Status: Acute Assessment and Plan: stable continue beta-siddharth Plavix and statin (5) Diastolic dysfunction: Code(s): I51.89 - Other ill-defined heart diseases Status: Acute Assessment and Plan: been sometime since she has had an echo reassess ventricular function, stopped IV fluids and restarted lasix with bnp 2500 DD dysfunction with EF 40-45% (6) PAD (peripheral artery disease): Code(s): I73.9 - Peripheral vascular disease, unspecified Status: Acute Assessment and Plan: stable continue Plavix statin (7) DVT prophylaxis: Code(s): Z29.9 - Encounter for prophylactic measures, unspecified Status: Acute Assessment and Plan: now xarelto post cardioversion (8) Bronchitis: Code(s): J40 - Bronchitis, not specified as acute or chronic Status: Acute Assessment and Plan: with productive cough added doxycycline on admission (9) Atrial flutter: Code(s): I48.92 - Unspecified atrial flutter Status: Acute Assessment and Plan: JENNYFER cardioversion 12-09. maintaining sinus rhythm with sinus bradycardia. Adjusting beta-siddharth and loading with assisted amiodarone. Probable discharge 12/11 with xarelto as above Subjective Date/time seen: 12/11/19 15:41 Interval history: Date of visit 12/10. 84-year-old white female known coronary disease peripheral vascular disease presented to the emergency room with increased shortness breath and acute renal insufficiency with potassium elevated. With treatment for the hyperkalemia and hydration potassium fell and renal function returned to her baseline. She is less sob and cough is less.. Echocardiogram EF 40-45%. has chronic cough and she thought it was a little more purulent than usual so doxy was started. aflutter 12/08 and JENNYFER cardioversion 12/09 no sob though and feels better than has for some time Exam Narrative: Exam Narrative: blood pressure 106/60 pulse is 64 saturating 93% on room air afebrile pupil equal reactive light sclera anicteric mouth normal lungs clear today CV RRR no murmurs or gallops abdomen soft nontender no masses extremities no edema dorsalis pedis posterior tibial not palpable but feet are warm neuro alert pleasant cooperative no focal deficits integument no skin breakdown rashes psych pleasant cooperative affect appropriate Objective Data Vital Signs Vital Signs: Vital Signs - 24 hr 12/10/19 16:00 12/10/19 16:44 12/10/19 17:49 Temperature 36.2 C L Pulse Rate 67 82 82 Respiratory Rate 16 Blood Pressure 114/52 L Pulse Oximetry 96 12/10/19 18:00 12/10/19 20:00 12/10/19 20:35 Temperature 36.1 C L Pulse Rate 70 72 Respiratory Rate 18 Blood Pressure 107/60 Pulse Oximetry 99 93 12/10/19 21:55 12/10/19 22:00 12/11/19 00:00 Temperature Pulse Rate 74 71 70 Resp
[2019-12-11] MEDS: RIVAROXABAN 15 MG TABLET PO (17:25)
[2019-12-11] MEDS: METOPROLOL TARTRATE 12.5 MG TABLET PO (20:42)
[2019-12-12] VITALS (7 sets, daily range): BP systolic 110–120; BP diastolic 44–56; PULSE 51–76; RESP 16–20; TEMP 36.3–36.4; O2SAT 94–98
[2019-12-12 04:28] LABS: Anion Gap 12.1 mmol/L (7-16); Blood Urea Nitrogen 30 mg/dL (7-17); Calcium 8.8 mg/dL (8.4-10.2); Carbon Dioxide 24 mmol/L (22-30); Chloride 104 mmol/L (98-107); Estimated CRCL calculation 20 ml/min; Estimated Glomerular Filt Rate 29; Glucose 115 mg/dL (65-105); Potassium 4.1 mmol/L (3.4-5.0); Sodium 136 mmol/L (137-145)
[2019-12-12] MEDS: ALBUTEROL SULFATE (*SP) AEROSOL 1 PUFF 2 PUFF INHALATION (07:59)
[2019-12-12] MEDS: ATORVASTATIN 40 MG TABLET PO (08:25)
[2019-12-12] MEDS: PANTOPRAZOLE 40 MG TABLET PO (08:25)
[2019-12-12] MEDS: FUROSEMIDE 40 MG TABLET PO (08:25)
[2019-12-12] MEDS: DOXYCYCLINE HYCLATE 100 MG TABLET PO (08:25)
[2019-12-12] MEDS: AMIODARONE HCL 200 MG TABLET 400 MG PO (08:25)
[2019-12-12] MEDS: METOPROLOL TARTRATE 12.5 MG TABLET PO (08:25)
--- NOTE | 2019-12-12 10:45 | PM.PNCARD ---
Progress Note: A&P Assessment and Plan (1) Atrial flutter with rapid ventricular response: Code(s): I48.92 - Unspecified atrial flutter Status: Acute Assessment and Plan: Relatively asymptomatic, hemodynamically stable. By history she has been experiencing this for least 2 weeks intermittently and possibly longer by her account. As such, will discontinue amiodarone given higher likelihood of left atrial appendage thrombus and stroke risk with chemical cardioversion. JENNYFER guidance prior to cardioversion be safest option if atrial flutter persists. She has not started on systemic anticoagulation Which should continue. Monitor for bleeding. Toprol-XL 25 mg daily. Reduce amiodarone 200 mg p.o. daily and 1 month continue amiodarone at current dose.Would keep at least through the afternoon to see heart rate response. (2) CAD in [place] artery: Code(s): I25.10 - Atherosclerotic heart disease of [place] coronary artery without angina pectoris Status: Acute Assessment and Plan: Stable, continue current medical therapy. No anginal symptoms. (3) CKD (chronic kidney disease) stage 3, GFR 30-59 ml/min: Code(s): N18.3 - Chronic kidney disease, stage 3 (moderate) Status: Acute Assessment and Plan: Stable. Continue monitor closely. Electrolytes under fair control. Hyperkalemia initially now resolved. (4) PAD (peripheral artery disease): Code(s): I73.9 - Peripheral vascular disease, unspecified Status: Acute Assessment and Plan: Stable significant claudication. Longstanding. Continue medical therapy. (5) Mediastinal mass: Code(s): J98.59 - Other diseases of mediastinum, not elsewhere classified Status: Acute Assessment and Plan: 1.5 x 1.0 cm nodule which requires further workup. Defer to primary service. Okay for DC from my perspective Subjective Date/time seen: 12/12/19 10:45 Interval history: 84-year-old woman with a history of coronary artery disease and chronic COPD with previous tobacco abuse. Presents with hypoxemia and incidentally noted to be in atrial flutter with 2-1 conduction. The patient appears to be minimally if at all symptomatic with this arrhythmia. My partner who saw the patient yesterday indicated that JENNYFER/cardioversion would be a reasonable option. Long discussion with the patient as well as granddaughter on the telephone this morning. The reasonable options would be to proceed in this fashion with the alternative being to anticoagulate her for 4-6 weeks as an outpatient. The advantage of this would be to obviate the need for esophageal echo. The advantage of proceeding at this time would be to avoid the need for a few future cardioversion procedure. It is the patient's preference to try to restore sinus rhythm during this hospitalization. Because of her chronic lung disease we will schedule this procedure with anesthesia in attendance to manage sedation and protect her airway. Date of service 12/12/2019: She did undergo successful JENNYFER guided cardioversion. She has periodic episodes of bradycardia generally at night with heart rates in the 40s but is asymptomatic and this usually occurs at night. Otherwise she feels great today and denies any chest pain or significant shortness of breath Review of Systems Review of Systems: All systems reviewed & are unremarkable except as noted in HPI and below Constitutional: Constitutional: Reports as per HPI, Reports no additional constitutional complaints, Reports fatigue and Reports weakness Eyes: Eyes: Reports as per HPI and Reports no additional eye complaints ENT: Reports system reviewed and no additional complaints, except as documented and Reports as per HPI Cardiovascular: Cardiovascular: Reports as per HPI, Reports no additional cardiovascular complaints, Denies chest pain, Denies diaphoresis, Reports leg edema, Denies palpitations, Denies dyspnea and Denies dyspne
--- NOTE | 2019-12-14 12:28 | PM.DS ---
DS: Admitting Diagnosis Admitting Diagnosis Admitting Diagnosis: Acute kidney failure, unspecified DS: Discharge Diagnosis Discharge Diagnosis (1) Acute renal failure superimposed on chronic kidney disease: Code(s): N17.9 - Acute kidney failure, unspecified; N18.9 - Chronic kidney disease, unspecified Status: Acute Assessment and Plan: creatinine a year ago was 1.28. With hyperkalemia held her KEIKO-inhibitor, hydrated, and continue to follow. potassium 4.1 and creatinine 1.7 at discharge [place] with [facility] [place] (2) Hyperkalemia: Code(s): E87.5 - Hyperkalemia Status: Acute Assessment and Plan: as above held KEIKO-inhibitor and hydrate and potassium 4.1 at discharge (3) Lung nodule: Code(s): R91.1 - Solitary pulmonary nodule Status: Acute Assessment and Plan: found on CT scan about 1.5 x 1 cm nodule. will need follow-up repeat CT scan or possibly PET scan in 1-2 months or at discretion primary care (4) CAD in [place] artery: Code(s): I25.10 - Atherosclerotic heart disease of [place] coronary artery without angina pectoris Status: Acute Assessment and Plan: stable continue beta-siddharth Plavix and statin (5) Diastolic dysfunction: Code(s): I51.89 - Other ill-defined heart diseases Status: Acute Assessment and Plan: been sometime since she has had an echo reassess ventricular function, bnp 2500 DD dysfunction with EF 40-45% KEIKO-inhibitor was continue to be held at discharge (6) PAD (peripheral artery disease): Code(s): I73.9 - Peripheral vascular disease, unspecified Status: Acute Assessment and Plan: stable continue Plavix statin (7) Bronchitis: Code(s): J40 - Bronchitis, not specified as acute or chronic Status: Acute Assessment and Plan: with productive cough added doxycycline on admission and will continue 4 days post discharge. She complained of productive cough as stated and had subsided by the time discharge (8) Atrial flutter: Code(s): I48.92 - Unspecified atrial flutter Status: Acute Assessment and Plan: JENNYFER cardioversion 12-09. maintaining sinus rhythm with sinus bradycardia. continue beta-siddharth and loading with detention amiodarone. and Xarelto 15 mg added for anticoagulation DS: Summary Hospital Course Hospital Course: 84-year-old white female admitted with dehydration, productive cough, elevated creatinine and potassium. She was hydrated, potassium treated, and quickly improved. she did developed atrial flutter with a 2-1 block with ventricular rate of 140 which was relatively asymptomatic and was anticoagulated and electrically cardioverted to sinus rhythm on 12/09. amiodarone was added to her treatment. Blood pressure toward the low side in with elevated creatinine KEIKO-inhibitor was continued to be held at discharge, she will have a BMP drawn 12/20 at cardiology visit Time Spent with Patient Time attestation: Total time spent providing and/or coordinating discharge services:35 minutes Exam Narrative: Exam Narrative: Condition on discharge blood pressure 120 / 66 pulse is 60 saturating 98% on room air afebrile lungs clear CV regular rate rhythm extremities without edema ambulating independently with no complaints of shortness of breath and taking a diet well Discharge Plan Discharge Attending physician on discharge: Bladimir Callaway Consulting providers: Rao Meier Discharging Clinician: Bladimir Callaway Patient Disposition: Home, Self-Care Activity: other - see discharge instructions Diet: low sodium Discharge Instructions: CARDIOLOGY DISCHARGE INSTRUCTIONS ACTIVITY:Activity as tolerated with precautions to avoid falls. Rise slowly from a seated or lying position. FOLLOW-UP: Follow-up with Primary Care Provider 1-2 weeks. Follow [facility] with [facility] CardiologyJohn[facility] (formal
== END 2019-12-12 11:50 | disposition home or self-care (01) | DRG 641 ==
LOC: ANHED 12-07 01:35 → ANHICU 12-07 03:03 → ANH3MEDSUR 12-08 07:44 → ANHIMU 12-10 09:33 → ANH3MEDSUR 12-15 12:24 → ANHICU 12-15 12:24 → ANHIMU 12-15 12:24
PROVIDERS: Family Medicine; Nurse Practitioner; Specialist; Admitting Provider Internal Medicine; Emergency Provider General Practice; PCP Family Medicine; Visit Provider Internal Medicine
PROC: 5A2204Z Restoration of Cardiac Rhythm, Single (ICD-10-PCS; CPT 93312; principal; 2019-12-10 13:30)
PROC: 5A2204Z Restoration of Cardiac Rhythm, Single (ICD-10-PCS; 2019-12-10 13:30)
DX: E87.5 Hyperkalemia (principal); I48.92 Unspecified atrial flutter; I13.0 Hypertensive heart and chronic kidney disease with heart failure and stage 1 through stage 4 chronic kidney disease, or unspecified chronic kidney disease; I50.42 Chronic combined systolic (congestive) and diastolic (congestive) heart failure; N18.3 Chronic kidney disease, stage 3 (moderate); R91.1 Solitary pulmonary nodule; E86.0 Dehydration; I73.9 Peripheral vascular disease, unspecified; E78.5 Hyperlipidemia, unspecified; I25.10 Atherosclerotic heart disease of native coronary artery without angina pectoris; J44.9 Chronic obstructive pulmonary disease, unspecified; Z96.641 Presence of right artificial hip joint; Z11.59 Encounter for screening for other viral diseases; I25.2 Old myocardial infarction; Z79.899 Other long term (current) drug therapy; Z86.718 Personal history of other venous thrombosis and embolism; Z86.73 Personal history of transient ischemic attack (TIA), and cerebral infarction without residual deficits; Z87.891 Personal history of nicotine dependence; Z95.1 Presence of aortocoronary bypass graft
CPT/HCPCS: 36415; 36600; 70450; 71045; 71250; 80048; 80053; 81001; 82375; 82805; 83050; 83605; 83735; 83880; 84443; 84484; 85025; 85610; 85730; 87086; 87088; 87635; 92960; 93005; 93306; 93312; 93320; 93325; 94640; 96365; 96375; 97110; 97116; 97162; 97165; 97168; 99291; A9270; C9803; J0131; J0282; J0610; J1644; J1650; J1815; J2704; J3475; J7030; J7040; U0003

== ENCOUNTER 2019-12-17 13:42 | Outpatient (CLI) | payer MEDICARE, SELFPAY ==
--- NOTE | 2019-12-17 13:57 | ECG_ITS ---
Measurements Intervals [place] Rate: 62 P: 40 WA: 127 QRS: -30 QRSD: 106 T: 98 QT: 439 QTc: 449 Interpretive Statements SINUS RHYTHM ATRIAL PREMATURE COMPLEX RSR' IN V1 OR V2, CONSIDER RIGHT VENTRICULAR HYPERTROPHY OR RIGHT VCD VOLTAGE CRITERIA FOR LVH BORDERLINE R WAVE PROGRESSION, ANTERIOR LEADS MINIMAL Q WAVES- HIGH LATERAL LEADS BORDERLINE ST-T WAVE ABNORMALITY- HIGH LATERAL LEADS BASELINE WANDER- V1-V2, V4 BORDERLINE ECG Electronically Signed On 12-17-2019 15:46:57 CDT by Robert David D.O.
== END 2019-12-17 13:43 | disposition home or self-care (01) ==
PROVIDERS: PCP Family Medicine; Visit Provider Nurse Practitioner Adult Health
DX: I48.92 Unspecified atrial flutter (principal)
CPT/HCPCS: 93005

== ENCOUNTER 2020-01-28 16:48 | Outpatient (RCR) | payer MEDICARE, SELFPAY ==
[2020-01-28 17:25] LABS: INR 2.1; Prothrombin Time 22.7 Seconds (11.1-14.7)
== END 2020-04-27 23:59 | disposition home or self-care (01) ==
LOC: HOME HLTH 16:48
PROVIDERS: Visit Provider Internal Medicine Cardiovascular Disease
DX: Z51.81 Encounter for therapeutic drug level monitoring (principal); I25.10 Atherosclerotic heart disease of native coronary artery without angina pectoris; I50.42 Chronic combined systolic (congestive) and diastolic (congestive) heart failure; I13.0 Hypertensive heart and chronic kidney disease with heart failure and stage 1 through stage 4 chronic kidney disease, or unspecified chronic kidney disease; N18.3 Chronic kidney disease, stage 3 (moderate); I48.91 Unspecified atrial fibrillation; E87.5 Hyperkalemia; Z95.1 Presence of aortocoronary bypass graft; Z86.73 Personal history of transient ischemic attack (TIA), and cerebral infarction without residual deficits; Z87.891 Personal history of nicotine dependence; Z79.01 Long term (current) use of anticoagulants
CPT/HCPCS: 85610

== ENCOUNTER 2020-02-01 11:32 | Emergency (ER) | payer MEDICARE, SELFPAY ==
[2020-02-01 11:41] VITALS: BP 181/71; PULSE 86; RESP 18; TEMP 36.7; O2SAT 96
[2020-02-01] MEDS: MORPHINE SULFATE (*CRX) 2 MG/ML INJ 1 MG IV PUSH (12:32)
--- NOTE | 2020-02-01 13:13 | ED.BACK ---
HPI - Back Pain/Injury General Chief Complaint: Back Pain/Injury Stated Complaint: MID BACK PAIN Time Seen by Provider: 02/01/20 11:36 Source: patient and family (daughter) Mode of arrival: ambulatory Limitations: no limitations History of Present Illness HPI Narrative: Patient presents with chief complaint of severe pain to her right scapular region and right lower ribs. Patient states she has not falling or had any trauma recently. Patient has chronic pain to this area but states that it has worsened over the past 3 weeks and really is added today. Patient used to take NSAIDs for her discomfort but they were stopped due to stomach ulcers and she was started on [place] 5/325 3 times a day. Patient states that she last took a [place] at 9:30 AM without any relief in her symptoms. Patient has been found to have a lung mass and had a PET scan done but has not been informed of the results. Patient denies any recent falls or direct trauma. Patient denies any fever, chills, nausea, vomiting, shortness of breath, chest pain or any other symptoms. Patient's PCP is Dr. Plunkett. Related Data Home Medications Medication Instructions Recorded Confirmed furosemide 40 mg PO DAILY 12/07/19 12/07/19 amiodarone 200 mg tablet 200 mg PO DAILY 12/28/19 Allergies Allergy/AdvReac Type Severity Reaction Status Date / Time No Known Allergies Allergy Verified 02/01/20 11:44 Review of Systems Review of Systems: Narrative: CONSTITUTIONAL: Denies fever, chills, or sweats. EYES: Denies visual changes, redness, or discharge. ENT: Denies rhinorrhea, congestion, sore throat, or otalgia. CARDIOVASCULAR: Denies chest pain, palpitations, or edema. RESPIRATORY: Denies cough or dyspnea. GASTROINTESTINAL: Denies abdominal pain, nausea, vomiting, or diarrhea. GENITOURINARY: Denies dysuria or hematuria. SKIN: Denies rash or itching. MUSCULOSKELETAL: Reports right shoulder and rib pain Denies back pain, myalgia NEUROLOGIC: Denies headache, numbness, dizziness, or weakness. PSYCHIATRIC: Denies anxiety or depression. [facility] Social History Social History Social History: currently her grandchildren live with her. Smoking packs per day: 0.5 Smoking cigarettes per day: 10.0 Years smoked: 50 Smoking pack-years: 25.00 Smoking status: Former smoker Tobacco type: cigarettes Second hand tobacco smoke exposure: Yes Alcohol intake: former Substance use: never Gender identity (if verbalized by the patient): Female Spiritual care concerns: No Exam Narrative: Exam Narrative: GENERAL: Well-appearing, well-nourished. Clearly in discomfort, hard to get comfortable. HEAD: Normocephalic, atraumatic. EYES: PERRLA and EOMI. ENT: Nares clear, no rhinorrhea or epistaxis. Mucous membranes moist. Oropharynx without tonsillar hypertrophy exudate or other lesions. Bilateral TMs pearly [place] nonbulging CHEST: Clear to auscultation. No respiratory distress. No wheezes rales or rhonchi HEART: Regular rate and rhythm. Normal peripheral pulses. BACK:Tenderness with palpation of right scalpula and right ribs. No outward bruising or other signs of injury. ABDOMEN: Soft, nontender, nondistended, normal active bowel sounds. No bruises noted. EXTREMITIES: No acute changes in ROM. SKIN: Warm, dry, no rash. NEURO: No focal deficits. Alert and oriented x3. PSYCH: Normal mood and affect. Course Vital Signs Vital signs: Vital Signs Temperature 98.1 F 02/01/20 11:41 Pulse Rate 86 02/01/20 11:41 Respiratory Rate 18 02/01/20 11:41 Blood Pressure 181/71 H 02/01/20 11:41 Pulse Oximetry 96 02/01/20 11:41 Temperature 98.1 F 02/01/20 11:41 Pulse Rate 86 02/01/20 11:41 Respiratory Rate 18 02/01/20 11:41 Blood Pressure 181/71 H 02/01/20 11:41 Pulse Oximetry 96 02/01/20 11:41 MDM - Back Pain/Injury MDM Narrative Medical decision making narrative: Reviewed patient's PE
[2020-02-01] MEDS: MORPHINE SULFATE (*CRX) 2 MG/ML INJ IV PUSH (14:12)
[2020-02-01 15:22] VITALS: BP 151/76; PULSE 72; RESP 18; O2SAT 97
== END 2020-02-01 15:24 | disposition home or self-care (01) ==
PROVIDERS: Emergency Provider Emergency Medicine; PCP Family Medicine
DX: C79.51 Secondary malignant neoplasm of bone (principal); C34.90 Malignant neoplasm of unspecified part of unspecified bronchus or lung
CPT/HCPCS: 96374; 96376; 99284; J2270